=== PATIENT | female | born 1955 | race Caucasian/White ===

== ENCOUNTER 2018-12-18 14:50 | Emergency (ER) | payer OTHER, MEDICARE | END 2018-12-18 17:07 | disposition home or self-care (01) | LOC: FTE 14:50 | DX: H11.31 Conjunctival hemorrhage, right eye (principal); S81.852A Open bite, left lower leg, initial encounter; I10 Essential (primary) hypertension; E11.9 Type 2 diabetes mellitus without complications; W54.0XXA Bitten by dog, initial encounter; Y92.9 Unspecified place or not applicable; Z79.4 Long term (current) use of insulin; Z79.82 Long term (current) use of aspirin | CPT/HCPCS: 99283 ==

== ENCOUNTER 2019-01-26 13:39 | Emergency (ER) | payer OTHER ==
[2019-01-26] MEDS: IBUPROFEN 200 MG TAB PO (15:23)
[2019-01-26] MEDS: ACETAMINOPHEN 325 MG TAB PO (15:23)
== END 2019-01-26 17:12 | disposition home or self-care (01) ==
LOC: FTE 13:39
DX: S52.571A Other intraarticular fracture of lower end of right radius, initial encounter for closed fracture (principal); S52.572A Other intraarticular fracture of lower end of left radius, initial encounter for closed fracture; S52.612A Displaced fracture of left ulna styloid process, initial encounter for closed fracture; S52.614A Nondisplaced fracture of right ulna styloid process, initial encounter for closed fracture; S92.351A Displaced fracture of fifth metatarsal bone, right foot, initial encounter for closed fracture; E11.9 Type 2 diabetes mellitus without complications; I10 Essential (primary) hypertension; W01.0XXA Fall on same level from slipping, tripping and stumbling without subsequent striking against object, initial encounter; Y92.9 Unspecified place or not applicable; Z79.82 Long term (current) use of aspirin; Z79.4 Long term (current) use of insulin
CPT/HCPCS: 29125; 73110-LT; 73110-RT; 73610-RT; 73630; 99284-25